=== PATIENT | female | born 1995 | race Caucasian/White ===

== ENCOUNTER → 2019-04-08 00:26 | Observation (INO) ==
[2019-04-07 23:39] LABS: Amphetamine Screen,Urine Negative ng/mL (Cutoff=1000); Barbiturate Screen,Urine Negative ng/mL (Cutoff=200); Benzodiazepines Screen,Urine Negative ng/mL (Cutoff=200); Cannabinoid Screen,Urine Negative ng/mL (Cutoff = 50); Cocaine Screen,Urine Negative ng/mL (Cutoff= 300); Opiate Screen,Urine Negative ng/mL (Cutoff=300); Phencyclidine Screen,Urine Negative ng/mL (Cutoff=25)
[2019-04-07 23:55] LABS: Bilirubin,Urine Negative (Negative); Clarity,Urine Clear (Clear); Color,Urine Yellow (Yellow); Glucose,Urine (UA) Normal (Normal)
[2019-04-07 23:56] LABS: Blood,Urine Negative (Negative); Ketones,Urine Negative (Negative); Leukocyte Esterase,Urine Negative (Negative); Nitrite,Urine Negative (Negative); PH,Urine 7.5 pH Units (5.0-8.0); Protein,Urine Negative (Neg-Trace); Urobilinogen,Urine Normal (Normal)
--- NOTE | 2019-04-09 13:42 | Discharge Summary ---
Date of Encounter: 04/08/19 Time of Encounter: 01:00 - Discharge Diagnosis (1) 30 weeks gestation of Priority: Primary Status: Acute Comments: Admit to observation for labor evaluation (2) NST (non-stress test) reactive Priority: Secondary Status: Acute Comments: FHR 125 bpm, moderate variability, +15x15 accels, no decels. - Discharge Medications Prescriptions: No Action Ferrous Sulfate 325 mg PO DAILY #0 tablet Vit/Iron Fumarate/FA [ Tablet] 1 each PO DAILY #30 tablet Aspirin 81 mg PO DAILY Home Medications: Ferrous Sulfate 325 mg PO DAILY #0 tablet 10/07/16 [Rx] Vit/Iron Fumarate/FA [ Tablet] 1 each PO DAILY #30 tablet 06/28/18 [Rx] Aspirin 81 mg PO DAILY 04/07/19 [History] Allergies/Adverse Reactions: Allergy/AdvReac Type Severity Reaction Status Date / Time sulfamethoxazole Allergy Vomiting Verified 04/07/19 23:23 [From Bactrim] trimethoprim [From Bactrim] Allergy Vomiting Verified 04/07/19 23:23 Data Procedures and tests throughout hospitalization: Laboratory Tests 04/07/19 04/07/19 23:15 23:19 Urine Color Yellow Urine Clarity Clear Urine pH 7.5 Ur Specific [place] 1.010 Urine Protein Negative Urine Glucose (UA) Normal Urine Ketones Negative Urine Blood Negative Urine Nitrite Negative Urine Bilirubin Negative Urine Urobilinogen Normal Ur Leukocyte Esterase Negative Urine Opiates Screen Negative Ur Barbiturates Screen Negative Ur Phencyclidine Scrn Negative Ur Amphetamines Screen Negative U Benzodiazepines Scrn Negative Urine Cocaine Screen Negative U Marijuana (THC) Screen Negative Ur Drug Screen Interp See Below Date of admission: 04/07/19 23:13 Primary care physician: PCP NONE Discharging clinician: Ada Asif Anticipated date of discharge: 04/08/19 - Patient Status Disposition: Home, Self-Care Condition: Good Functional capacity at discharge: independent ambulation Overall status at discharge: patient is progressing back to baseline - Discharge Instructions Follow Up With: NONE,PCP [Primary Care Provider] - - Diet and Activity Activity: resume usual activities as tolerated Diet: regular diet Hospital 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 She reports positive movement, denies vaginal bleeding and fluid leakage. Reactive NST noted, no uterine activity noted, UA within normal limits. She is to follow up for routine care as scheduled with Dr. Hannah. Time Attestation: Total time spent providing and/or coordinating discharge services: Time Spent: Less than 30 minutes Exam - Other Additional findings: Assessment by RN - VTE Reasons for not Prescribing Prophylaxis: Treatment not Indicated - Low risk for VTE
== END | disposition home or self-care (01) ==
LOC: 1NENULAB
PROVIDERS: ADMIT Registered Nurse; ATTEND Registered Nurse

== ENCOUNTER → 2019-04-27 21:07 | Observation (INO) ==
[2019-04-27 18:19] LABS: Bilirubin,Urine Negative (Negative); Blood,Urine Negative (Negative); Clarity,Urine Cloudy (Clear); Color,Urine Yellow (Yellow); Glucose,Urine (UA) Normal (Normal); Ketones,Urine Negative (Negative); Leukocyte Esterase,Urine Negative (Negative); Nitrite,Urine Negative (Negative); PH,Urine 7.5 pH Units (5.0-8.0); Protein,Urine Negative (Neg-Trace); Specific Gravity,Urine 1.016 (1.010-1.025); Urobilinogen,Urine Normal (Normal)
[2019-04-27 18:22] LABS: Bacteria,Urine None Seen per hpf (None-Few); Hyaline Casts,Urine None Seen per lpf (None-Few); RBC,Urine 0-3 per hpf (0-3); Squamous Epithelial Cell,Urine Many per lpf (None-Few)
[2019-04-27 18:28] LABS: Amphetamine Screen,Urine Negative ng/mL (Cutoff=1000); Barbiturate Screen,Urine Negative ng/mL (Cutoff=200); Benzodiazepines Screen,Urine Negative ng/mL (Cutoff=200); Cannabinoid Screen,Urine Negative ng/mL (Cutoff = 50); Cocaine Screen,Urine Negative ng/mL (Cutoff= 300); Opiate Screen,Urine Negative ng/mL (Cutoff=300); Phencyclidine Screen,Urine Negative ng/mL (Cutoff=25)
[2019-04-27 19:16] LABS: Basophils % 0.4 %; Eosinophils # 0.1 K/mcL (0.0-0.6); Eosinophils % 0.9 %; Hematocrit 27.1 % (35.3-44.9); Hemoglobin 8.7 g/dL (11.5-15.4); Immature Granulocytes % 0.6 % (0-4); Immature Reticulocyte % 15.9 % (11.0-38.0); Lymphocytes # 2.3 K/mcL (0.6-4.6); Lymphocytes % 21.2 %; Mean Corpuscular HGB Conc 32.1 g/dL (31.6-35.5); Mean Corpuscular Hemoglobin 28.8 pg (28.0-33.3); Mean Corpuscular Volume 89.7 fL (83.0-100.0); Mean Platelet Volume 10.1 fL (9.4-12.4); Monocytes # 0.5 K/mcL (0.0-1.3); Monocytes % 4.3 %; Neutrophils # 7.7 K/mcL (1.6-8.9); Platelet Count 175 K/mcL (140-400); Red Blood Count 3.02 M/mcL (3.82-4.97); Red Cell Distribution Width 13.9 % (11.5-14.5); Retculocyte # 0.08 M/mcL (0.05-0.10); Reticulocyte % 2.6 % (1.6-2.8); Segmented Neutrophils % 72.6 %
[2019-04-27 19:33] LABS: Alanine Aminotransferase 11 Units/L (7-52); Albumin 3.4 g/dL (3.5-5.7); Albumin/Globulin Ratio 1.4 (1.1-2.2); Alkaline Phosphatase 93 Units/L (34-104); Aspartate Amino Transferase 14 Units/L (13-39); BUN/Creatinine Ratio 9 (6-26); Bilirubin,Total 0.3 mg/dL (0.3-1.0); Blood Urea Nitrogen 5 mg/dL (6-20); Calcium 8.8 mg/dL (8.6-10.3); Carbon Dioxide 24 mEq/L (23-29); Chloride 106 mEq/L (98-107); Globulin 2.5 g/dL (2.4-3.5); Glucose 77 mg/dL (70-105); Osmolality,Calculated 282 (280-300); Potassium 3.1 mEq/L (3.5-5.1); Sodium 138 mEq/L (136-145); Total Protein 5.9 g/dL (6.4-8.9); eGFR For Non-African Americans > 60 (> 60)
[2019-04-27 19:58] LABS: Vitamin B12 190 pg/mL (250-1100)
[2019-04-27 20:37] LABS: Folate > 22.3 ng/mL (3.0-16.0)
--- NOTE | 2019-04-27 20:50 | OB/GYN Progress Note ---
Date of Encounter: 04/27/19 Time of Encounter: 20:47 - Assessment and Plan (1) 33 weeks gestation of Current Visit: Yes Status: Acute (2) Leg cramping Current Visit: Yes Status: Acute No erythema or warmth noted, minimal edema Patient denies n/v or diarrhea. She admits to eating very little due to no appetite since she has been so tired for the last 2 weeks. She states she eats what her toddler eats so she doesn't have to fix anything else. Suspect cramping pain is from hypokalemia. Supplement given. Discharge home with precautions. List of potassium containing foods given. (3) Anemia affecting Current Visit: Yes Status: Acute Pt is awaiting a call to schedule from hemotology. She reports taking geritol BID for iron supplementation. Pt is also low in vitamin B12. List of iron and B12 containing foods given. Qualifiers: Trimester: third trimester Qualified Code(s): O99.013 - Anemia complicating , third trimester Subjective - Subjective Interval history: 23 year-old presenting at 33w2d with c/o cramping in her lower extremeties. She reports the cramping pain is worse in the left faust area. She also reports significant fatigue and feeling really out of it this am. She denies cramping, leaking, or bleeding. Good FM. Antepartum ROS: movement normal, no loss of fluid, no vaginal bleeding, no contractions Objective - Vital Signs Vital Signs: Intake and Output 04/27/19 04/27/19 04/27/19 07:59 15:59 23:59 Other: Weight 75.1 kg Patient Weight 04/27/19 23:59 Weight 75.1 kg - Exam FHR: category 1 FHR comments: 130 BPM, reactive NST Auscultation: bilateral: normal Abdomen: Present: soft, gravid Uterus: Present: normal Comments: reflexes normal, strength equal bilaterally - Labs Labs: Abnormal lab results RBC 3.02 M/mcL (3.82-4.97) L 04/27/19 18:18 Hgb 8.7 g/dL (11.5-15.4) L 04/27/19 18:18 Hct 27.1 % (35.3-44.9) L 04/27/19 18:18 Potassium 3.1 mEq/L (3.5-5.1) L 04/27/19 18:18 BUN 5 mg/dL (6-20) L 04/27/19 18:18 0.58 mg/dL (0.60-1.20) L 04/27/19 18:18 5.9 g/dL (6.4-8.9) L 04/27/19 18:18 3.4 g/dL (3.5-5.7) L 04/27/19 18:18 Vitamin B12 190 pg/mL (250-1100) L 04/27/19 18:31 > 22.3 ng/mL (3.0-16.0) H 04/27/19 18:31 Cloudy (Clear) A 04/27/19 18:00 3-5 per hpf (0-3) H 04/27/19 18:00 Ur Squamous Epith Cells Many per lpf (None-Few) H 04/27/19 18:00
== END | disposition home or self-care (01) ==
LOC: 1NENULAB
PROVIDERS: ADMIT Registered Nurse; ATTEND Registered Nurse

== ENCOUNTER → 2019-06-10 13:20 | Observation (INO) ==
--- NOTE | 2019-06-10 13:00 | OB/GYN Progress Note ---
Date of Encounter: 06/10/19 Time of Encounter: 12:57 - Assessment and Plan (1) 39 weeks gestation of Current Visit: Yes Status: Acute Reactive NST Likely not ruptured Discharge home with labor precautions Follow up in office as scheduled on Monday with Dr Hannah POC per consult with Dr Garvin (2) NST (non-stress test) reactive Current Visit: Yes Status: Acute Subjective - Subjective Principal diagnosis: Leaking fluid since Monday Night Interval history: Ms Hernandez is a at 39 weeks and 5 days that presents to triage with c/o leaking fluid since Monday evening. She states she had one large gush of fluid and has felt wet since. 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 She would like to be in labor and states that she has done everything she can think of except for taking jeni oil of which I recommended she NOT do. She is seen by Dr Hannah for her care. Antepartum ROS: loss of fluid, movement normal, no vaginal bleeding, no contractions Objective - Vital Signs Vital Signs: Intake and Output 06/09/19 06/10/19 06/10/19 23:59 07:59 15:59 Other: Weight 76.3 kg Patient Weight 06/10/19 23:59 Weight 76.3 kg - Exam FHR: auscultation normal, category 1 FHR comments: Reactive NST Baseline 130 with moderate variability and 15 x 15 accels with no decels. Contractions not present upon palpation or toco. Abdomen: Present: normal appearance, soft, gravid. Absent: tenderness Uterus: Present: normal. Absent: firm, tenderness Cervical dilation: 3-4 Cervix effacement: 80 station: -3 Comments: SSE - no fluid in vaginal vault or coming from cervix Nitrazine negative Fern negative membranes palpated between vertex and cervix
[2019-06-10 13:20] LABS: Amphetamine Screen,Urine Negative ng/mL (Cutoff=1000); Barbiturate Screen,Urine Negative ng/mL (Cutoff=200); Benzodiazepines Screen,Urine Negative ng/mL (Cutoff=200); Cannabinoid Screen,Urine Negative ng/mL (Cutoff = 50); Cocaine Screen,Urine Negative ng/mL (Cutoff= 300); Opiate Screen,Urine Negative ng/mL (Cutoff=300); Phencyclidine Screen,Urine Negative ng/mL (Cutoff=25)
== END | disposition home or self-care (01) ==
LOC: 1NENULAB
PROVIDERS: ADMIT Advanced Practice Midwife; ATTEND Advanced Practice Midwife

== ENCOUNTER 2019-06-12 23:00 | Inpatient (IN) ==
[2019-06-13] MEDS ORDERED: Metoclopramide 10 MG/2 ML VIAL IVP PRN (00:58)
[2019-06-13] MEDS ORDERED: Famotidine 20 MG/2 ML VIAL IVP PRN (00:58)
[2019-06-13] MEDS ORDERED: Naloxone 0.4 MG/ML INJ IVP PRN (00:58)
[2019-06-13] MEDS ORDERED: *HR* Nalbuphine 10 MG/ML AMPUL IVP PRN (00:58)
[2019-06-13] MEDS ORDERED: Ringers Solution, Lactated 1,000 ML IVC SCH (01:00)
[2019-06-13] MEDS ORDERED: miSOPROStol 25 MCG TABLET PO PRN (01:02)
[2019-06-13] MEDS ORDERED: D5% in 0.45% NACL 1,000 ML IVC SCH (01:45)
--- NOTE | 2019-06-13 01:53 | Event Note ---
Date of Encounter: 06/13/19 Time of Encounter: 01:52 Patient she reported for induction of labor. Informed was obtained for placement of a Davis catheter for cervical ripening. heart tones are 120s, CAT 1. Contractions not present. Patient is is been given her first dose of Cytotec. Cervix is 3-4/90/0, vertex. Davis placed without difficulty and 60 mL of sterile saline used to fill the balloon. Patient tolerated well. No bleeding seen. Continue induction of labor at 40 weeks
[2019-06-13 02:15] LABS: Basophils % 0.4 %; Eosinophils # 0.1 K/mcL (0.0-0.6); Eosinophils % 1.2 %; Hematocrit 31.2 % (35.3-44.9); Hemoglobin 10.3 g/dL (11.5-15.4); Immature Granulocytes % 0.7 % (0-4); Lymphocytes # 2.5 K/mcL (0.6-4.6); Lymphocytes % 22.8 %; Mean Corpuscular Hemoglobin 30.4 pg (28.0-33.3); Monocytes # 0.6 K/mcL (0.0-1.3); Monocytes % 5.3 %; Neutrophils # 7.7 K/mcL (1.6-8.9); Platelet Count 128 K/mcL (140-400); Red Blood Count 3.39 M/mcL (3.82-4.97); Segmented Neutrophils % 69.6 %; White Blood Count 11.1 K/mcL (4.3-11.1)
--- NOTE | 2019-06-13 02:22 | Anesthesia Evaluation PreOp ---
Date of Encounter: 06/13/19 Time of Encounter: 02:20 - Past History Planned Operation: SCOTT Cardiac History: Denies any Significant Hx Pulmonary History: Denies Any Significant HX AEROSPACE ENGINEER History: Denies Any Significant HX Other Medical History: Denies Any Significant HX Anesthesia History: No Prior Anesthetic Complications (no issues w/ NA; denies personal and family h/o GA complications), Past Anesthesia (SCOTT x 1; L cheek surgery as child) : Yes Alcohol Use: none Drug use: none Medications and Allergies Ferrous Sulfate 325 mg PO DAILY #0 tablet 10/07/16 [Rx] Vit/Iron Fumarate/FA [ Tablet] 1 each PO DAILY #30 tablet 06/28/18 [Rx] Aspirin 81 mg PO DAILY 04/07/19 [History] raNITIdine HCl [Zantac] 150 mg PO BID 04/27/19 [History] Ascorbic Acid [Vitamin C] 1,000 mg PO DAILY 05/09/19 [History] Cyanocobalamin (Vitamin B-12) [Vitamin B-12] 1,000 mcg PO DAILY #30 capsule 05/09/19 [Rx] Allergy/AdvReac Type Severity Reaction Status Date / Time sulfamethoxazole Allergy Vomiting Verified 05/09/19 11:23 [From Bactrim] trimethoprim [From Bactrim] Allergy Vomiting Verified 05/09/19 11:23 - Meds/Allergy Pre-op Review Medications Reviewed: Yes Allergies Reviewed: Yes Beta Blockers on Current Med List: No Anesthesia Results - Labs 06/13/19 01:15 Anesthesia Exam 119/66, HR 82 O2 Sat Height 1.65 m Weight 76.204 kg NPO (# of Hours): solids > 4 Pain Scale: 6 Pain Scale Used: [place] (Faces) - HEENT Pupil (Motor): Pupils equal Mallampati: II Teeth: Normal Oral Opening: Greater than 3 - AEROSPACE ENGINEER LOC: Oriented AEROSPACE ENGINEER Motor: Normal RUE, Normal LUE, Normal RLE, Normal LLE, Normal Face AEROSPACE ENGINEER Sensory: Normal: RUE, LUE, RLE, LLE, Face - Cardiac Rhythm: Regular Murmur: None - Pulmonary Breath Sounds: bilateral Clear Respiratory Effort: Symmetrical Anesthesia Assess/Plan ASA Score: 2 Level of consciousness: Cooperative, Oriented, Restless Anesthetic Plan: Epidural Autologous Blood: No Monitoring Plan: Standard Monitors Recovery Plan: Other
[2019-06-13] MEDS ORDERED: *HR* FentaNYL (PF) 100 MCG/2 ML VIAL EP ONE (02:23)
[2019-06-13] MEDS ORDERED: Bupivacaine-MPF 0.25% 10 ML VIAL EP ONE (02:23)
[2019-06-13 02:26] LABS: Amphetamine Screen,Urine Negative ng/mL (Cutoff=1000); Barbiturate Screen,Urine Negative ng/mL (Cutoff=200); Benzodiazepines Screen,Urine Negative ng/mL (Cutoff=200); Cannabinoid Screen,Urine Negative ng/mL (Cutoff = 50); Cocaine Screen,Urine Negative ng/mL (Cutoff= 300); Opiate Screen,Urine Negative ng/mL (Cutoff=300); Phencyclidine Screen,Urine Negative ng/mL (Cutoff=25)
[2019-06-13] MEDS ORDERED: *HR* FentaNYL (PF) 100 MCG/2 ML VIAL ONE (02:26)
[2019-06-13] MEDS ORDERED: Epidural Premix (fent/bupiv) 110 ML EP ONE (02:29)
[2019-06-13] MEDS ORDERED: Epidural Premix (fent/bupiv) 110 ML EP SCH (02:30)
--- NOTE | 2019-06-13 04:11 | Anesthesia Procedures ---
Date of Encounter: 06/13/19 Time of Encounter: 04:09 Procedures: Anesthesia - Epidural/Spinal Patient ID/Chart reviewed: Yes Patient examined: Yes OB Eval: Gestational age: 40 weeks 0 day OB Eval: : 3 OB Eval: Hx Para: 1 OB Eval: Dilated at (cm): 4 OB Eval: Contractions: Non-stressed pattern Consent Obtained: Yes Supplemental Oxygen: None/Room Air Site Prep: Aseptic Technique, Sterile prep and drape, 0.5% Chlorhexidine/Alcohol Patient position: upright Local Anesthetic: Lidocaine 1% Amount of Local Anesthetic used: 5 Touhy Needle Gauge: 18 Touhy Needle Depth (cm): 6 Catheter Depth at Skin (cm): 11 Test Dose (1.5% Lido + Epi): Volume given (mls): 5 Test Dose Result: Negative Loading Dose: 0.25% Marcaine (mls): 5 Loading Dose: Fentanyl (mcg): 100 Loading Dose Administered: Thru Catheter Infusion Med: 0.125% Bupivacaine w/ 2 mcg/ml Fentanyl Infusion Rate (mls/hr): [address]: Tegaderm, Tape Interspace Used: L4-L5 Loss of Resistance (ELAINE): Yes Blood: No CSF: No Paresthesia: No Procedure: successful on 1st attempt; patient tolerated procedure well; VSS Vitals + FHT's: see [facility]ero DONNELLY's electronic records for VS entry
[2019-06-13] MEDS ORDERED: Ondansetron 4 MG/2 ML VIAL IVP PRN (06:56)
--- NOTE | 2019-06-13 07:04 | OB Labor Progress Note ---
Date of Encounter: 06/13/19 Time of Encounter: 07:01 Labor Progress Note - Subjective Subjective: The patient reports being comfortable with her epidural. She does have some nausea and is requesting Zofran - Vital Signs Vital Signs: Afebrile, vital signs stable - Cervix Cervix: 6/90/0, vertex - Heart Tones Heart Tones: 120s, CAT 1 - [place]: Contractions every 3-4 minutes, patient received Cytotec one dose @ 0140 - Interventions Interventions: 40 week IUP for induction of labor - Plan Plan: Amniotomy with small amount of clear fluid seen. Some show noted. Davis came out at 3 AM. Continue monitoring and anticipate vaginal delivery. Augment with Pitocin if needed
[2019-06-13] MEDS ORDERED: Oxytocin 20 units/ LR 1000 mL 20 UNIT/1,000 ML BAG IVC ONE ×2 (08:05→16:01)
[2019-06-13] MEDS ORDERED: Ropivacaine /PF 1% 100 MG/10 ML VIAL ONE (08:55)
[2019-06-13] MEDS ORDERED: Cyanocobalamin (B-12) 1,000 MCG TABLET PO SCH (09:00)
--- NOTE | 2019-06-13 09:43 | Anesthesia Progress Note ---
Date of Encounter: 06/13/19 Time of Encounter: 08:40 Anesthesia Note - Note Note: 06/13/19 09:42 called to patient bedside, state pain level 8, nursing staff confirms she is making significant change dilated to 9cm. naropin 1% 5ml via epidural catheter, states immediated relief of pain Reason for Cancellation: Other
--- NOTE | 2019-06-13 14:49 | OB/GYN Procedure Note ---
Delivery - Delivery Date: 06/13/19 Provider: Stella Hannah Intrapartum events: meconium (noted at the end of labor) Delivery induction: paige, misoprostol Delivery augmentation: rupture of membranes, pitocin Delivery monitor: external FHT, external uterine Anesthesia: epidural Quantitated Blood Loss: 200 - Infant (s) A Infant Delivery Date: 06/13/19 Delivery Time: 14:26 Presentation: vertex Position: MILEY Route of delivery: Gender: Male Viability: Viable Pounds: 9 Ounces: 7 Weight Gram: 4.305 kg at 1 minute: 8 at 5 mins: 9 Shoulder Dystocia: not encountered Placenta: spontaneous Cord: 3 umbilical vessels - Repair Episiotomy: none Laceration Description: Periurethral (Left, hemostatic and not repaired) - Complications Delivery complications: meconium Delivery comments: The patient complete and pushing with spontaneous vaginal delivery over intact perineum with epidural anesthesia of a vigorous male weighing 9 lbs. 7 oz. with Apgars of 8 at 1 minute and 9 at 5 minutes. was handed to the nursery care team. Briefly bulb suctioned, no oral meconium noted. The cord was clamped and cut after pulsations ceased. Cord segment was obtained. Placenta was delivered spontaneous and intact. There was a left periurethral superficial laceration which was hemostatic and not repaired. No other lacerations noted. Estimated blood loss 200 mL's. Complications none. Both mother name for recovering in stable condition in the LDR. - Disposition Mom disposition: stable in LDR [place] disposition: stable in LDR
[2019-06-13] MEDS ORDERED: Oxytocin 20 units/ LR 1000 mL 20 UNIT/1,000 ML BAG IVC SCH (15:44)
[2019-06-13] MEDS ORDERED: Measles/Mumps/Rubella Vacc 0.5 ML VIAL SQ PRN (15:44)
[2019-06-13] MEDS ORDERED: Benzocaine/Menthol 56 GM AEROSOL SPRAY TP PRN (15:44)
[2019-06-13] MEDS ORDERED: Ibuprofen 600 MG TABLET PO SCH (18:00)
[2019-06-13] MEDS: Acetaminophen 325 MG TABLET PO SCH (21:37)
[2019-06-14] MEDS: Acetaminophen 325 MG TABLET PO SCH ×2 (08:24→13:14)
[2019-06-14] MEDS ORDERED: Prenatal Vit/FA 1 EACH TABLET PO SCH (09:00)
--- NOTE | 2019-06-14 11:10 | Discharge Summary ---
Date of Encounter: 06/14/19 Time of Encounter: 11:07 - Discharge Diagnosis (1) Vaginal delivery Priority: Primary Status: Acute Comments: Continue routine care discharge home today follow up with Dr. Hannah - Discharge Medications Prescriptions: New Ibuprofen [Motrin] 600 mg PO Q6HR #60 tablet Benzocaine/Menthol [place] [Dermoplast [place]] 1 appl TP QID PRN aerosol PRN Reason: See Comments Discontinued Ferrous Sulfate 325 mg PO DAILY #0 tablet Vit/Iron Fumarate/FA [ Tablet] 1 each PO DAILY #30 tablet Aspirin 81 mg PO DAILY raNITIdine HCl [Zantac] 150 mg PO BID Ascorbic Acid [Vitamin C] 1,000 mg PO DAILY Cyanocobalamin (Vitamin B-12) [Vitamin B-12] 1,000 mcg PO DAILY #30 capsule Home Medications: Benzocaine/Menthol [place] [Dermoplast [place]] 1 appl TP QID PRN aerosol 06/14/19 [Rx] Ibuprofen [Motrin] 600 mg PO Q6HR #60 tablet 06/14/19 [Rx] Allergies/Adverse Reactions: Allergy/AdvReac Type Severity Reaction Status Date / Time sulfamethoxazole Allergy Vomiting Verified 05/09/19 11:23 [From Bactrim] trimethoprim [From Bactrim] Allergy Vomiting Verified 05/09/19 11:23 Data Procedures and tests throughout hospitalization: Laboratory Tests 06/13/19 06/13/19 01:15 01:15 WBC 11.1 RBC 3.39 L Hgb 10.3 L Hct 31.2 L MCV 92.0 MCH 30.4 MCHC 33.0 RDW 15.0 H Plt Count 128 L MPV 11.0 Immature Gran % 0.7 Seg Neutrophils % 69.6 Lymphocytes % 22.8 Monocytes % 5.3 Eosinophils % 1.2 Basophils % 0.4 Neutrophils # 7.7 Lymphocytes # 2.5 Monocytes # 0.6 Eosinophils # 0.1 Basophils # 0.0 Urine Opiates Screen Negative Ur Buprenorphine Scrn Negative Ur Barbiturates Screen Negative Ur Phencyclidine Scrn Negative Ur Amphetamines Screen Negative U Benzodiazepines Scrn Negative Urine Cocaine Screen Negative U Marijuana (THC) Screen Negative Ur Drug Screen Interp See Below Date of admission: 06/12/19 23:07 Primary care physician: PCP NONE Consults: 06/13/19 15:44 Consult to Bar Finish Operator [CONS] Routine Comment: Vaginal delivery, consult needed Discharging clinician: Mouna Merchant Anticipated date of discharge: 06/14/19 - Patient Status Disposition: Home, Self-Care Condition: Good - Discharge Instructions Follow Up With: NONE,PCP [Primary Care Provider] - Stella Hannah MD [Partnered Physician] - - Diet and Activity Activity: increase activity as tolerated Diet: regular diet Hospital Course Reason for admission: induction of labor Delivery: Episiotomy: none Other procedures: none complications: none Discharge diagnosis: IUP at term delivered [place] baby: male (bottle feeding) Time Attestation: Total time spent providing and/or coordinating discharge services: Time Spent: Less than 30 minutes Exam - Constitutional Vitals: Temp Pulse Resp BP Pulse Ox 98.3 F 54 14 131/80 99 06/13/19 19:45 06/13/19 19:45 06/13/19 19:45 06/13/19 19:45 06/13/19 19:45 General appearance IM: A&O X 3, pleasant, answers questions appropriately - Respiratory Respiratory exam: Present: CTAB - Cardiovascular Cardiovascular exam IM: Present: RRR, +S1, +S2 - GI/Abdominal GI/Abdominal exam IM: normal bowel sounds - Uterine Tone: Firm Uterus Position: At Umbilicus, Midline - Extremities Exam Extremities exam IM: Present: full ROM, normal capillary refill, normal inspection - Neurological Exam Neurological exam: alert, oriented X3, reflexes normal
[2019-06-14 11:21] VITALS: BP 118/76
== END 2019-06-14 18:00 | disposition home or self-care (01) | DRG 807 ==
LOC: 1NENULAB 23:07 → 1NENUOBS 06-13 17:06
PROVIDERS: ADMIT Obstetrics & Gynecology; ATTEND Obstetrics & Gynecology